=== PATIENT | female | born 1945 | race African-American/Black ===

== ENCOUNTER 2017-09-27 18:45 | Inpatient (IN) | payer OTHER ==
--- NOTE | 2017-09-27 19:35 | PDOC ---
History of Present Illness - General History Source: Patient <Alvin Allen - Last Filed: 09/27/17 21:15> - General Exam Limitations: No Limitations - History of Present Illness Initial Comments: 09/27/17 21:34 Patient is a 72 year old female with a significant past medical history of CHF, who presents to the ED with complaints of shortness of breath that began earlier this week. Patient reports seeing her blueprinter who advised patient come into the ED for further evaluation. She reports experiencing decreased appetite and intermittent episodes of being cold but denies chills. Patient reports symptoms began several days ago and has gradually increased in intensity. Patient reports currently being in heart failure. She reports experiencing intermittent episodes of being cold but denies chills. Patient reports having a blister on her right foot but denies knowing how she received the blister but states she believes it to be due to sitting in the sun. Denies chest pain, Sob. Denies fevers,chills. Denies nausea, vomiting. Denies contact with sick individuals, out of state travelling. Denies dysuria, hematuria. Denies constipation, diarrhea. Denies head trauma, loss of consciousness, Vision changes. Denies trauma to affected area. Denies any other symptoms. Allergies: Shellfish. Social history: No smoking. No alcohol. No illicit drugs. Surgical history: None PMD: Dr. Fischer <Candido Sutherland - Last Filed: 09/27/17 21:34> - General Chief Complaint: Shortness of Breath Stated Complaint: PCP SENT/ card for amdission Time Seen by Provider: 09/27/17 19:26 Past History - Past Medical History COPD: Yes Diabetes: Yes HTN: Yes Hypercholesterolemia: Yes - Surgical History Cardiac Surgery: Yes (stent) - Suicide/Smoking/Psychosocial Hx Smoking History: Never smoked Have you smoked in the past 12 months: No Information on smoking cessation initiated: No Hx Alcohol Use: No Drug/Substance Use Hx: No Substance Use Type: None <Alvin Allen - Last Filed: 09/27/17 21:15> <Candido Sutherland - Last Filed: 09/27/17 21:34> - Past Medical History Allergies/Adverse Reactions: Allergies Allergy/AdvReac Type Severity Reaction Status Date / Time shellfish derived Allergy Verified 09/27/17 18:53 Home Medications: Ambulatory Orders Amlodipine Besylate [Norvasc -] 5 mg PO DAILY 09/27/17 Aspirin [Aspirin EC] 81 mg PO DAILY 09/27/17 Review of Systems - Review of Systems Able to Perform ROS?: Yes Comments:: 09/27/17 21:34 CONSTITUTIONAL: Absent: fever, no chills, no fatigue EYES: Absent: visual changes ENT: Absent: ear pain, no sore throat CARDIOVASCULAR: Absent: chest pain, no palpitations RESPIRATORY: +Shortness of breath. Absent: cough, no SOB GI: +Decreased appetite Absent: abdominal pain, no nausea, no vomiting, no constipation, no diarrhea GENITOURINARY: Absent: dysuria, no frequency, no hematuria MUSCULOSKELETAL: Absent: back pain, no arthralgia, no myalgia SKIN: Absent: rash <Candido Sutherland - Last Filed: 09/27/17 21:34> *Physical Exam - Vital Signs Last Vital Signs Temp Pulse Resp BP Pulse Ox 98.5 F 100 H 20 134/75 100 09/27/17 18:54 09/27/17 18:54 09/27/17 18:54 09/27/17 18:54 09/27/17 18:54 <Alvin Allen - Last Filed: 09/27/17 21:15> - Vital Signs Last Vital Signs Temp Pulse Resp BP Pulse Ox 98.5 F 100 H 20 134/75 100 09/27/17 18:54 09/27/17 18:54 09/27/17 18:54 09/27/17 18:54 09/27/17 18:54 - Physical Exam Comments: 09/27/17 21:34 GENERAL: Well-appearing, well-nourished. No apparent distress. HEENT: Normocephalic, atraumatic. PERRL, EOM intact. CARDIOVASCULAR: Normal S1, S2. Regular rate and rhythm. PULMONARY: +Decreased breath sounds bilaterally. +scattered crackles. Clear to auscultation bilaterally. ABDOMEN: Soft, non-distended, non-tender. EXTREMITIES: +1 plus pitting edema bilaterally to lower extremities. +Dorsum of right foot blister 10 cm. No surrounding erythema. Normal ROM in all four extremities. No gross deformities. SKIN: Warm, dry. No rash NEUROLOGICAL: No focal neurological deficits. <Candido Sutherland Last Filed: 09/27/17 21:34> Heart Score/ECG Review - ECG Intrepretation Comment:: 09/27/17 19:36 Completed @18:59:18 Sinus rhythm with occasional premature ventricular complexes Possible left atrial enlargement Septal infarct, age undetermined Abnormal ECG Vent. rate 100 bpm [place] interval 158 ms QRS duration 86 ms <Candido Sutherland - Last Filed: 09/27/17 21:34> ED Treatment Course - LABORATORY CBC & Chemistry Diagram: 09/27/17 20:03 09/27/17 20:03 <Alvin Allen - Last Filed: 09/27/17 21:15> - LABORATORY CBC & Chemistry Diagram: 09/27/17 20:03 09/27/17 20:03 <Candido Sutherland - Last Filed: 09/27/17 21:34> *DC/Admit/Observation/Transfer - Discharge Dispostion Decision to Admit order: Yes <Alvin Allen - Last Filed: 09/27/17 21:15> - Attestations Scribe Attestion: 09/27/17 21:34 Documentation prepared by Candido Sutherland, acting as medical nurse for Alvin Allen DO. <Candido Sutherland - Last Filed: 09/27/17 21:34> Diagnosis at time of Disposition: CHF (congestive heart failure), Shortness of breath - Discharge Dispostion Condition at time of disposition: Stable - Referrals Referrals: Michael Fischer [Primary Care Provider] -
[2017-09-27 20:27] LABS: HEMATOCRIT 27.6 % (32.4-45.2); MCHC 28.8 g/dl (32.0-36.0); MEAN CELL VOLUME 62.5 fl (80-96); MEAN PLT VOLUME 9.4 fl (7.5-11.1); PLATELET COUNT 328 K/MM3 (134-434); RBC 4.41 M/mm3 (3.60-5.2); RDW 25.3 % (11.6-15.6); WHITE BLOOD COUNT 6.1 K/mm3 (4.0-10.0)
[2017-09-27 20:28] LABS: ADD RBC MORPHOLOGY YES
[2017-09-27 20:41] LABS: INR 1.24 (0.82-1.09)
[2017-09-27 20:55] LABS: ALBUMIN 2.9 g/dl (3.4-5.0); ANION GAP 9 (8-16); BILIRUBIN,TOTAL 0.6 mg/dL (0.2-1.0); BLOOD UREA NITROGEN 13 mg/dL (7-18); CALCIUM 8.1 mg/dL (8.5-10.1); CHLORIDE 108 mmol/L (98-107); CO2 27 mmol/L (21-32); CREATININE 0.7 mg/dL (0.55-1.02); GLUCOSE,RANDOM 98 mg/dL (74-106); MAGNESIUM 2.1 mg/dL (1.8-2.4); POTASSIUM 3.3 mmol/L (3.5-5.1); SGOT/AST 23 U/L (15-37); SGPT/ALT 26 U/L (12-78); SODIUM 144 mmol/L (136-145); TOT PROT 6.2 g/dl (6.4-8.2)
[2017-09-27 21:06] LABS: ANISOCYTOSIS 3+; OVALOCYTE 1+; PLATELET ESTIMATE ADEQUATE; TARGET CELLS 3+
[2017-09-27 21:07] LABS: ALK PHOS 96 U/L (45-117); N-TERMINAL BNP 15944.11 pg/ml (5-125)
[2017-09-27 21:12] LABS: URINE APPEARANCE CLOUDY; URINE BILIRUBIN NEGATIVE (<2.0 mg/dL); URINE COLOR AMBER; URINE GLUCOSE (UA) NEGATIVE (NEGATIVE); URINE KETONE NEGATIVE (NEGATIVE); URINE LEUK ESTERASE TRACE (NEGATIVE); URINE NITRITE NEGATIVE (NEGATIVE); URINE UROBILINOGEN 4.0 E.U/dl mg/dL (0.2-1.0)
[2017-09-27] MEDS ORDERED: FUROSEMIDE 40 MG/4 ML INJECTABLE VIAL IVPUSH ONE (21:15)
[2017-09-27 21:23] LABS: URINE PROTEIN 2+ (NEGATIVE)
[2017-09-27] MEDS ORDERED: FUROSEMIDE 40 MG/4 ML INJECTABLE VIAL ONE (21:41)
--- NOTE | 2017-09-27 22:40 | PN ---
Teaching Attending Note Name of Resident: Max Boss ATTENDING PHYSICIAN STATEMENT I saw and evaluated the patient. I reviewed the resident's note and discussed the case with the resident. I agree with the resident's findings and plan as documented. SUBJECTIVE: Patient is a 72 year old woman with a medical history of CHF, who presents to the ER with complaints of shortness of breath that began earlier this week. Patient reports seeing her ocean lifeguard who advised patient come into the ER for further evaluation. She reports experiencing decreased appetite and intermittent episodes of being cold but denies chills. Patient reports symptoms began several days ago and has gradually increased in intensity. Patient reports currently being in heart failure. She reports experiencing intermittent episodes of being cold but denies chills. Patient reports having a blister on her right foot but denies knowing how she received the blister but states she believes it to be due to sitting in the sun. OBJECTIVE: Alert and in mild respiratory distress Vital Signs Period Temp Pulse Resp BP Sys/Andres Pulse Ox Last 24 Hr 98.2 F-98.5 F 88-100 20-22 122-134/75-77 98-100 HEENT: No Jaundice, eye redness or discharge, PERRLA, EOMI. Normocephalic, atraumatic. External ears are normal and hearing is grossly intact. No nasal discharge. Neck: Supple, nontender. No palpable adenopathy or thyromegaly. Has JVD Chest: Good effort. Bibasilar crackles. Diminished breath sounds in left lung. Clear to auscultation and percussion. Heart: Regular. No S3, rub or murmur Abdomen: Not distended, soft, nontender and no HSM. No rebound or guarding. Normoactive bowel sounds. Ext: Peripheral pulses intact. Leg edema. Blister on dorsum of left foot. Skin: Warm and dry. No petechiae, rash or ecchymosis. Neuro: Alert. Oriented x3. CN 2-12 grossly intact. Sensation grossly intact in all four extremities and DTR are symmetric. Home Medications Medication Instructions Recorded Amlodipine Besylate [Norvasc -] 5 mg PO DAILY 09/27/17 Aspirin [Aspirin EC] 81 mg PO DAILY 09/27/17 Abnormal Lab Results 09/27/17 09/27/17 09/27/17 20:03 20:03 20:03 Hgb 8.0 L Hct 27.6 L D MCV 62.5 L MCH 18.0 L D MCHC 28.8 L RDW 25.3 H Nucleated RBC % 2 H PT with INR 14.00 H INR 1.24 H Potassium 3.3 L Chloride 108 H Calcium 8.1 L Troponin I 0.10 H B-Natriuretic Peptide 79140.11 H Total Protein 6.2 L Albumin 2.9 L Urine Protein Urine Urobilinogen 09/27/17 21:03 Hgb Hct MCV MCH MCHC RDW Nucleated RBC % PT with INR INR Potassium Chloride Calcium Troponin I B-Natriuretic Peptide Total Protein Albumin Urine Protein 2+ H Urine Urobilinogen 4.0 e.u/dl H ASSESSMENT AND PLAN: 1. CHF Exacerbation - No obvious precipitating factor and no recent ECHO available on her record. CXR shows cardiomegaly, blunted left CP angle and pulmonary congestion. Slightly elevated troponin, but EKG shows no significant new ST-T was changes - will monitor on telemetry and rule out ACS. Will treat with IV lasix while giving IV and PO KCL, get daily weight, restrict dietary salt intake. 2. Hypoalbuminemia - Possibly due to combined effects of proteinuria, malnutrition and inflammation associated with comorbid chronic conditions. Will quantify urinary protein excretion and ensure adequate dietary protein intake and also consult communications controller. 3. Anemia - Has low MCV anemia and an abnormal peripheral smear. Will do basic anemia work up including serial stool guaiacs, reticulocyte count and iron studies. Consult Hematology. GI consult for ?colonoscopy. 4. Hypokalemia - Likely due to excess renal losses induced by diuretics? coupled with poor intake. Check serum Mg level and urine K. Treat with PO KCL. 5. DVT prophylaxis - Heparin 5000u sq tid. 6. Advance directives - Full code
[2017-09-28] MEDS ORDERED: POTASSIUM CHLORIDE TABS 20 MEQ TABLET.ER (FP) PO ONE ×3 (04:06→15:00)
--- NOTE | 2017-09-28 05:17 | HP ---
CHIEF COMPLAINT: PCP: HISTORY OF PRESENT ILLNESS: 72 y/o F with a PMH of HTN, DM, CHF, who presents to the ED with complaints of SOB x 4d. In addition, she notes having an episode of CP for 15min about a week ago that spontaneously resolved, pt was unable to recall or characterize the pain. In addition she notes for the past 4 days associated w/ the SOB some nausea, chills, LIU. Patient reports seeing her card table attendant who did an echo and per pt reported "that heart wasnt beating correctly" and advised patient come into the ED for further evaluation. Of note, Patient reports having a blister on her right foot but denies knowing how she received the blister but states she believes it to be due to sitting in the sun. denies trauma to the foot Denies REDMAN, v/d, blood in stool, urinary sxs, sick contacts, changes in diet, or numbnes or tingling. PMD: Dr. Fischer ER course was notable for: (1) lasix 40mg iv (2) (3) Recent Travel: [place], came back this week PAST MEDICAL HISTORY: 3 mo ago eye doctor for cataracts b/l COPD PAST SURGICAL HISTORY: stents in the legs by card table attendant Social History: Smokinppd/30 years. quit 1 year ago Alcohol:none Drugs: marijuana in the past Family History: Allergies shellfish derived Allergy (Verified 09/27/17 18:53) HOME MEDICATIONS: Home Medications Medication Instructions Recorded Amlodipine Besylate [Norvasc -] 5 mg PO DAILY 09/27/17 Aspirin [Aspirin EC] 81 mg PO DAILY 09/27/17 REVIEW OF SYSTEMS Reviewed in HPI PHYSICAL EXAMINATION Vital Signs - 24 hr 09/27/17 09/27/17 09/28/17 18:54 20:01 01:09 Temperature 98.5 F 98.2 F 98.6 F Pulse Rate 100 H Pulse Rate [ 88 88 Right] Respiratory 20 22 19 Rate Blood Pressure 134/75 Blood Pressure 122/77 116/73 [Right Arm] O2 Sat by Pulse 100 98 95 Oximetry (%) 09/28/17 09/28/17 02:01 03:03 Temperature 98.2 F 98.9 F Pulse Rate 91 H Pulse Rate [ 83 Right] Respiratory 18 18 Rate Blood Pressure 134/74 Blood Pressure 110/73 [Right Arm] O2 Sat by Pulse 96 100 Oximetry (%) GENERAL: Awake, alert, and oriented x2. difficulty talking and in mild distress HEAD: Normal with no signs of trauma. EYES: Pupils equal, round and reactive to light, extraocular movements intact, sclera anicteric, conjunctiva clear. No lid lag. Fundoscope no retinopathy EARS, NOSE, THROAT: Ears normal, nares patent, oropharynx clear without exudates. Moist mucous membranes. NECK: +JVD Normal range of motion, supple without lymphadenopathy, or masses. LUNGS: Crackles b/l worse in LL and w/ decreased breath sounds in LL radiating to apex HEART: +Tachycardia Regular rhythm, normal S1 and S2 without murmur, rub or gallop. ABDOMEN: Soft, nontender, not distended, normoactive bowel sounds, no guarding, no rebound, no masses. No hepatomegaly or splenomegaly. MUSCULOSKELETAL: Normal range of motion at all joints. No bony deformities or tenderness. No CVA tenderness. UPPER EXTREMITIES: 2+ pulses, warm, well-perfused. No cyanosis. No clubbing. No peripheral edema. LOWER EXTREMITIES: 2+ pulses, warm, well-perfused. No calf tenderness. 2+ edema b/l. R foot blister, bulleous thin membrane on dorsum of foot NEUROLOGICAL: Cranial nerves II-XII intact. Normal speech. PSYCHIATRIC: Cooperative. Good eye contact. Appropriate mood and affect. SKIN: Warm, dry, normal turgor, no rashes or lesions noted, normal capillary refill. Laboratory Results - last 24 hr 09/27/17 09/27/17 09/27/17 20:03 20:03 20:03 WBC 6.1 RBC 4.41 Hgb 8.0 L Hct 27.6 L D MCV 62.5 L MCH 18.0 L D MCHC 28.8 L RDW 25.3 H Plt Count 328 D MPV 9.4 Absolute Neuts (auto) 4.1 Total Counted 100 Neutrophils % No Result Required. Neutrophils % (Manual) 70.0 Lymphocytes % No Result Required. Lymphocytes % (Manual) 24.0 Monocytes % (Manual) 6 Nucleated RBC % 2 H Hypochromia 3+ Platelet Estimate Adequate Platelet Comment No clumping noted Polychromasia 1+ Poikilocytosis 2+ Basophilic Stippling 1+ Anisocytosis 3+ Microcytosis 2+ Target Cells 3+ Ovalocytes 1+ PT with INR 14.00 H INR 1.24 H Sodium 144 Potassium 3.3 L Chloride 108 H Carbon Dioxide 27 Anion Gap 9 BUN 13 Creatinine 0.7 Creat Clearance w eGFR > 60 Random Glucose 98 Calcium 8.1 L Magnesium 2.1 Total Bilirubin 0.6 AST 23 ALT 26 Alkaline Phosphatase 96 Creatine Kinase 33 Troponin I 0.10 H B-Natriuretic Peptide 39052.11 H Total Protein 6.2 L Albumin 2.9 L Urine Color Urine Appearance Urine pH Ur Specific [place] Urine Protein Urine Glucose (UA) Urine Ketones Urine Blood Urine Nitrite Urine Bilirubin Urine Urobilinogen Ur Leukocyte Esterase Urine WBC (Auto) Urine RBC (Auto) 09/27/17 21:03 WBC RBC Hgb Hct MCV MCH MCHC RDW Plt Count MPV Absolute Neuts (auto) Total Counted Neutrophils % Neutrophils % (Manual) Lymphocytes % Lymphocytes % (Manual) Monocytes % (Manual) Nucleated RBC % Hypochromia Platelet Estimate Platelet Comment Polychromasia Poikilocytosis Basophilic Stippling Anisocytosis Microcytosis Target Cells Ovalocytes PT with INR INR Sodium Potassium Chloride Carbon Dioxide Anion Gap BUN Creatinine Creat Clearance w eGFR Random Glucose Calcium Magnesium Total Bilirubin AST ALT Alkaline Phosphatase Creatine Kinase Troponin I B-Natriuretic Peptide Total Protein Albumin Urine Color Alison Urine Appearance Cloudy Urine pH 5.0 Ur Specific [place] 1.023 Urine Protein 2+ H Urine Glucose (UA) Negative Urine Ketones Negative Urine Blood Negative Urine Nitrite Negative Urine Bilirubin Negative Urine Urobilinogen 4.0 e.u/dl H Ur Leukocyte Esterase Trace Urine WBC (Auto) 0 Urine RBC (Auto) 0 ASSESSMENT/PLAN: 72 y/o F with a PMH of HTN, DM, CHF, who presents to the ED with complaints of SOB x 4d found to be having acute decompensated HF. ADHF - No obvious precipitating factor, possible that recent episode of CP was demand ischemia or CT that could be a cause. No recent ECHO available on her record. CXR shows cardiomegaly, blunted left CP angle and pulmonary congestion. Slightly elevated troponin, but EKG shows no significant new ST-T was changes -monitor on telemetry and rule out ACS. -Will treat with IV lasix while giving IV and PO KCL, -get daily weight, restrict dietary salt intake. Microcytic Anemia - Has low MCV anemia and an abnormal peripheral smear. -basic anemia work up including serial stool guaiacs, reticulocyte count and iron studies. -Consult Hematology. -GI consult for ?colonoscopy. Hypokalemia - Likely due to excess renal losses induced by diuretics? coupled with poor intake. -Check serum Mg level and urine K. -Treat with PO KCL. FEN - no IVF - Monitor lytes as needed - Diabetic diet with low Na+ Prophylaxis - DVT: heparin SQ Disposition - admit tele Code status - Full code Visit type - Emergency Visit Emergency Visit: Yes ED Registration Date: 09/28/17 Care time: The patient presented to the Emergency Department on the above date and was hospitalized for further evaluation of their emergent condition. - New Patient This patient is new to me today: Yes Date on this admission: 09/28/17 - Critical Care Critical Care patient: No Hospitalist Screening - Colonoscopy Questionnaire Colonoscopy Questionnaire: Colonoscopy Questionnaire - Patient: 50 - 75 years old and never had a screening colonoscopy: Unknown History of colon or rectal polyps, or CA: Unknown History of IBD, Crohn's disease or UC: Unknown History of abdominal radiation therapy as a child: Unknown - Relative: 1 with colon or rectal CA, or polyps at age 60 or younger: Unknown Colon or rectal CA diagnosed at age 45 or younger: Unknown Multiple relatives with colon or rectal CA: Unknown - Outcome: Screening Result: Negative Screen
[2017-09-28] MEDS: HEPARIN NA (PORCINE) 5,000 UNITS/ML 1ML VIAL SQ SCH (05:58)
[2017-09-28 07:00] VITALS: BMI 18.5
--- NOTE | 2017-09-28 08:05 | CON.CARD ---
Consult Consult Specialty:: Cardiology - History of Present Illness Chief Complaint: chf exacorbation History of Present Illness: 72 y/o F with a PMH of HTN, DM, CHF, who presents to the ED with complaints of SOB x 4d. In addition, she notes having an episode of CP for 15min about a week ago that spontaneously resolved, pt was unable to recall or characterize the pain. In addition she notes for the past 4 days associated w/ the SOB some nausea, chills, LIU. Patient reports seeing her engineering mathematician who did an echo and per pt reported "that heart wasnt beating correctly" and advised patient come into the ED for further evaluation. Of note, Patient reports having a blister on her right foot but denies knowing how she received the blister but states she believes it to be due to sitting in the sun. denies trauma to the foot Denies REDMAN, v/d, blood in stool, urinary sxs, sick contacts, changes in diet, or numbnes or tingling. PMD: Dr. Fischer ER course was notable for: (1) lasix 40mg iv PMH HEAD OF RESEARCH & INSIGHTS R EIA, SENIOR SOFTWARE QUALITY ENGINEER, SFA (JEAN), PA Dr. Gomes HEAD [employer]EARCH [employer] INSIGHTS balloon of left deep femoral artery Dr. Gomes HEAD OF [employer]EARCH [employer] INSIGHTS balloon right SENIOR SOFTWARE QUALITY ENGINEER 06/07/2014 Dr. Gomes HEAD [employer] RESEARCH & INSIGHTS left SFA/PA/PFA 05/01/2015 Dr. Gomes [employer] OF RESEARCH & INSIGHTS/stent of left EIA Dr. Gomes Ongoing medical problems ASHD s/p [place] 2006 [facility] Claudication, intermittent dilated aortic root on ECHO , neg CT chest for ascending aortic aneurysm July 2013 HTN Hyperlipidemia PAD HEAD OF [employer]EARCH [employer] INSIGHTS balloon of left EIA, HEAD OF [employer]EARCH [employer] INSIGHTS drug coated balloons left SFA and PA, HEAD OF [employer]EARCH [employer] INSIGHTS balloon of left Profunda FA, kissing balloons inflations at left SENIOR SOFTWARE QUALITY ENGINEER/ostial SFA/PFA May 01, 2015 Dr. Gomes [employer]EARCH [employer] INSIGHTS drug coated balloons left SFA and PA May 01, 2015 Dr. Gomes - History Source History Provided By: Patient, Medical Record - Alcohol/Substance Use Hx Alcohol Use: No - Smoking History Smoking history: Former smoker Have you smoked in the past 12 months: No If you are a former smoker, when did you quit?: 1 year ago Home Medications - Allergies Allergies/Adverse Reactions: Allergies Allergy/AdvReac Type Severity Reaction Status Date / Time shellfish derived Allergy Verified 09/27/17 18:53 - Home Medications Home Medications: Ambulatory Orders Amlodipine Besylate [Norvasc -] 5 mg PO DAILY 09/27/17 Aspirin [Aspirin EC] 81 mg PO DAILY 09/27/17 Review of Systems - Review of Systems Constitutional: reports: No Symptoms Eyes: reports: No Symptoms HENT: reports: No Symptoms Neck: reports: No Symptoms Cardiovascular: reports: Edema, Shortness of Breath Respiratory: reports: No Symptoms Gastrointestinal: reports: No Symptoms Genitourinary: reports: No Symptoms Breasts: reports: No Symptoms Reported Musculoskeletal: reports: No Symptoms Integumentary: reports: No Symptoms Neurological: reports: No Symptoms Endocrine: reports: No Symptoms Hematology/Lymphatic: reports: No Symptoms Psychiatric: reports: No Symptoms Vital Signs: Vital Signs Temperature 98.9 F 09/28/17 03:03 Pulse Rate 91 H 09/28/17 03:03 Respiratory Rate 18 09/28/17 03:03 Blood Pressure 134/74 09/28/17 03:03 O2 Sat by Pulse Oximetry (%) 100 09/28/17 03:03 Constitutional: Yes: Well Nourished, No Distress, Calm Eyes: Yes: WNL, Conjunctiva Clear, EOM Intact HENT: Yes: WNL, Atraumatic, Normocephalic Neck: Yes: WNL, Supple, Trachea Midline Respiratory: Yes: WNL, Regular, CTA Bilaterally Gastrointestinal: Yes: WNL, Normal Bowel Sounds Renal/: Yes: WNL Cardiovascular: Yes: WNL, Regular Rate and Rhythm Musculoskeletal: Yes: WNL Extremities: Yes: WNL Integumentary: Yes: WNL Neurological: Yes: WNL, Alert, Oriented ...Motor Strength: WNL Psychiatric: Yes: WNL, Alert, Oriented - Other Data Labs, Other Data: CBC, BMP 09/27/17 20:03 09/27/17 20:03 INR, PTT INR 1.24 (0.82-1.09) H 09/27/17 20:03 Troponin, BNP 09/27/17 20:03 Troponin I 0.10 H B-Natriuretic Peptide 39618.11 H Troponin, BNP 09/27/17 20:03 Troponin I 0.10 H B-Natriuretic Peptide 63508.11 H Imaging - Results Chest X-ray: Image Reviewed (chf) EKG: Image Reviewed (sr olsd ant sep mi) Problem List - Problems (1) CHF (congestive heart failure) Code(s): I50.9 - HEART FAILURE, UNSPECIFIED (2) Shortness of breath Code(s): R06.02 - SHORTNESS OF BREATH Assessment/Plan Hypertension. It is well controlled; therefore, I would recommend continuation of current medical treatment. I would recommend obtaining fasting lipid profile to reassure that LDL is below 70 mg/dl. If LDL is above 70mg/dl I would recommend pharmacological treatment. The benefits of a "heart-healthy" diet were emphasized. This diet includes" 5+ portions of fruit/veg daily; whole grains and legumes; fish twice weekly; small daily portion of nuts; and decrease total daily calories/saturated and trans fats/processed meats and grains/fried foods/sugary foods and drinks. Patient was screened for unhealthy alcohol use using a systemic screening method. Patient was screened for tobacco use and unhealthy alcohol use, using a systemic screening method. Cessation counseling intervention was provided for tobacco and unhealthy alcohol users. Patient was screened for unhealthy alcohol use using a systemic screening method. PAD satable. Worsening lower extremity edema, SOB and blister in the setting of PAD and new severely reduced EF 20-25% (was 77%- )- I would recommend admission to [facility] via ER for diuresis and c cath later this week. cont iv lasix supplement k peter I, coreg telemetry
[2017-09-28 09:00] LABS: ANION GAP 10 (8-16); BLOOD UREA NITROGEN 11 mg/dL (7-18); CALCIUM 8.2 mg/dL (8.5-10.1); CHLORIDE 105 mmol/L (98-107); CO2 29 mmol/L (21-32); CREATININE 0.6 mg/dL (0.55-1.02); GLUCOSE,RANDOM 95 mg/dL (74-106); MAGNESIUM 1.9 mg/dL (1.8-2.4); PHOSPHOROUS 2.7 mg/dL (2.5-4.9); SODIUM 144 mmol/L (136-145)
[2017-09-28] MEDS ORDERED: PT OWN MED DRAWER 7, Y5N ONE ×2 (09:43→15:25)
[2017-09-28 09:55] LABS: BASO % 0.8 % (0-2.0); EOS % 0.6 % (0-4.5); HEMATOCRIT 26.4 % (32.4-45.2); HEMOGLOBIN 7.6 GM/dL (10.7-15.3); LYMPH % 24.4 % (8-40); MCHC 28.7 g/dl (32.0-36.0); MEAN CELL VOLUME 62.2 fl (80-96); MEAN PLT VOLUME 9.4 fl (7.5-11.1); MONO % 8.8 % (3.8-10.2); NEUT % 65.4 % (42.8-82.8); PLATELET COUNT 294 K/MM3 (134-434); RBC 4.24 M/mm3 (3.60-5.2); RDW 25.2 % (11.6-15.6); WHITE BLOOD COUNT 6.4 K/mm3 (4.0-10.0)
[2017-09-28] MEDS ORDERED: amLODIPine BESYLATE 5 MG TABLET (FP) PO SCH (10:00)
[2017-09-28] MEDS ORDERED: ASPIRIN COATED 81 MG TABLET.EC PO SCH (10:00)
[2017-09-28] MEDS ORDERED: FUROSEMIDE 40 MG/4 ML INJECTABLE VIAL IVPUSH SCH (10:00)
[2017-09-28 10:50] LABS: MCH 17.9 pg (25.7-33.7)
--- NOTE | 2017-09-28 11:42 | EKG ---
Test Reason : Blood Pressure : / mmHG Vent. Rate : 100 BPM Atrial Rate : 100 BPM P-R Int : 158 ms QRS Dur : 086 ms QT Int : 360 ms P-R-T Axes : 064 012 073 degrees QTc Int : 464 ms SINUS RHYTHM WITH OCCASIONAL PREMATURE VENTRICULAR COMPLEXES POSSIBLE LEFT ATRIAL ENLARGEMENT SEPTAL INFARCT (CITED ON OR BEFORE 10-DEC-2011) ABNORMAL ECG WHEN COMPARED WITH ECG OF 10-DEC-2011 10:04, PREMATURE VENTRICULAR COMPLEXES ARE NOW PRESENT VENT. RATE HAS INCREASED BY 44 BPM T WAVE INVERSION NOW EVIDENT IN LATERAL LEADS Confirmed by DEBI MICHEL MD ([id number]) on 09/28/2017 11:42:35 AM Referred By: Confirmed By:DEBI MICHEL MD
--- NOTE | 2017-09-28 12:08 | ECHO ---
Name: FIELDER, MARIAM Exam:Adult Echocardiogram Study Date: 09/28/2017 10:52 AM Reason For Study: CHF Height: 64 in Weight: 125 lb BSA: 1.6 m2 MMode/2D Measurements & Calculations IVSd: 1.0 cm Ao root diam: 2.8 cm LVIDd: 5.5 cm LA dimension: 3.1 cm LVIDs: 4.9 cm LVPWd: 0.96 cm EDV(Teich): 149.4 ml ESV(Teich): 114.9 ml Doppler Measurements & Calculations MV E max natalia: 58.2 cm/sec AI P1/2t: 245.6 msec MV A max natalia: 89.7 cm/sec MV E/A: 0.65 MV dec time: 0.21 sec AI max natalia: 462.4 cm/sec MR max natalia: 405.3 cm/sec AI max P.6 mmHg MR max P.2 mmHg AI dec slope: 551.5 cm/sec2 TR max natalia: 295.4 cm/sec PI Vmax: 237.5 cm/sec TR max P.9 mmHg Procedure A two-dimensional transthoracic echocardiogram with color flow and Doppler was performed. Left Ventricle The left ventricle is grossly normal size. Left ventricular systolic function is severely reduced. E/ A reversal consistent with but not diagnostic of poor LV compliance. There is severe global hypokinesis of the left ventricle. There is anterior wall akinesis. There is apical anterior wall akinesis. There is api antonio septal wall akinesis. There is apical akinesis. There is a large apical thrombus. Right Ventricle The right ventricle is normal in size and function. Atria Normal left and right atrial size and function. Mitral Valve There is mild mitral valve thickening. There is no mitral valve stenosis. There is mild to moderate m itral regurgitation. Tricuspid Valve There is mild tricuspid valve thickening. There is no tricuspid stenosis. There is severe tricuspid regurgitation. Right ventricular systolic pressure is elevated at 40-50mmHg. Aortic Valve The aortic valve is normal in structure and function. No hemodynamically significant valvular aortic stenosis. Mild to moderate aortic regurgitation. Pulmonic Valve The pulmonic valve is not well visualized. There is no pulmonic valvular stenosis. Trace to mild pulm onic valvular regurgitation. Great Vessels The aortic root is normal size. Pericardium/Pleura There is a mild pericardial effusion. Interpretation Summary The left ventricle is grossly normal size. Left ventricular systolic function is severely reduced. There is severe global hypokinesis of the left ventricle. There is severe tricuspid regurgitation. Right ventricular systolic pressure is elevated at 40-50mmHg. There is a mild pericardial effusion. Mild to moderate aortic regurgitation. There is a large apical thrombus. There is mild to moderate mitral regurgitation. E/A reversal consistent with but not diagnostic of poor LV compliance There is anterior wall akinesis. There is apical anterior wall akinesis. There is apical septal wall akinesis. There is apical akinesis. MD Bharat Mancera 09/28/2017 12:08 PM
[2017-09-28] MEDS ORDERED: HEPARIN NA (PORCINE) 5,000 UNITS/ML 1ML VIAL IVPUSH PRN ×2 (12:09)
[2017-09-28] MEDS ORDERED: HEPARIN SOD,PORK IN 0.45% NACL 25,000 UNIT/500 ML INFUS.BAG IVPB SCH (12:15)
[2017-09-28] MEDS: CARVEDILOL 3.125 MG TABLET (FP) PO SCH ×2 (13:31→22:34)
[2017-09-28] MEDS: ASPIRIN 325 MG ENTERIC COATED TABLET (FP) PO SCH (13:31)
--- NOTE | 2017-09-28 13:58 | PN ---
Teaching Attending Note Name of Resident: Katie Bey ATTENDING PHYSICIAN STATEMENT I saw and evaluated the patient. I reviewed the resident's note and discussed the case with the resident. I agree with the resident's findings and plan as documented with exceptions below. SUBJECTIVE: Patient seen and examined. sleeping but arousable, no complaints, limited co- operation. OBJECTIVE: Vital Signs Period Temp Pulse Resp BP Sys/Andres Pulse Ox Last 24 Hr 98.2 F-98.9 F 83-100 18-22 110-134/73-77 95-100 Intake & Output 09/25/17 09/26/17 09/27/17 09/28/17 23:59 23:59 23:59 23:59 Intake Total 50 Balance 50 Weight 125 lb 108 lb General: sleeping but arousable in bed Chest; Decreaesed breath sounds at bases, decreased air entry all over Abdomen:Soft, NT, nD Extremities: 2+ pedal edema, right foot blister Home Medications Medication Instructions Recorded Amlodipine Besylate [Norvasc -] 5 mg PO DAILY 09/27/17 Aspirin [Aspirin EC] 81 mg PO DAILY 09/27/17 Active Medications Aspirin (Ecotrin -) 325 mg PO DAILY [facility] [place] Last Admin: 09/28/17 13:31 Dose: 325 mg Carvedilol (Coreg -) 3.125 mg PO BID [facility] [place] Last Admin: 09/28/17 13:31 Dose: 3.125 mg Furosemide (Lasix Injection -) 80 mg IVPUSH DAILY [facility] [place] Last Admin: 09/28/17 13:46 Dose: 80 mg Heparin Sodium (Porcine) (Heparin -) 1,000 unit IVPUSH PRN PRN PRN Reason: Heparin Heparin Sodium (Porcine) (Heparin -) 5,000 unit IVPUSH PRN PRN PRN Reason: Heparin Last Admin: 09/28/17 12:10 Dose: 5,000 unit HEPARIN SOD,PORK IN 0.45% NACL (Heparin-1/2ns 25,000 Units/500) 25,000 unit in 500 mls @ 16 mls/hr IVPB TITR [facility] [place]; Protocol Last Admin: 09/28/17 12:30 Dose: 800 units/hr, 16 mls/hr Potassium Chloride (K-Dur -) 40 meq PO ONCE ONE Stop: 09/28/17 15:01 Quinapril HCl (Accupril -) 10 mg PO DAILY [facility] [place] Laboratory Results - last 24 hr 09/27/17 09/27/17 09/27/17 20:03 20:03 20:03 WBC 6.1 RBC 4.41 Hgb 8.0 L Hct 27.6 L D MCV 62.5 L MCH 18.0 L D MCHC 28.8 L RDW 25.3 H Plt Count 328 D MPV 9.4 Absolute Neuts (auto) 4.1 Total Counted 100 Neutrophils % No Result Required. Neutrophils % (Manual) 70.0 Lymphocytes % No Result Required. Lymphocytes % (Manual) 24.0 Monocytes % Monocytes % (Manual) 6 Eosinophils % Basophils % Nucleated RBC % 2 H Hypochromia 3+ Platelet Estimate Adequate Platelet Comment No clumping noted Polychromasia 1+ Poikilocytosis 2+ Basophilic Stippling 1+ Anisocytosis 3+ Microcytosis 2+ Target Cells 3+ Ovalocytes 1+ Retic Count PT with INR 14.00 H INR 1.24 H Sodium 144 Potassium 3.3 L Chloride 108 H Carbon Dioxide 27 Anion Gap 9 BUN 13 Creatinine 0.7 Creat Clearance w eGFR > 60 POC Glucometer Random Glucose 98 Calcium 8.1 L Phosphorus Magnesium 2.1 Ferritin Total Bilirubin 0.6 AST 23 ALT 26 Alkaline Phosphatase 96 Creatine Kinase 33 Troponin I 0.10 H B-Natriuretic Peptide 23946.11 H Total Protein 6.2 L Albumin 2.9 L Urine Color Urine Appearance Urine pH Ur Specific [place] Urine Protein Urine Glucose (UA) Urine Ketones Urine Blood Urine Nitrite Urine Bilirubin Urine Urobilinogen Ur Leukocyte Esterase Urine WBC (Auto) Urine RBC (Auto) Ur Random Sodium Ur Random Potassium Ur Random Chloride 09/27/17 09/28/17 09/28/17 21:03 06:22 07:30 WBC RBC Hgb Hct MCV MCH MCHC RDW Plt Count MPV Absolute Neuts (auto) Total Counted Neutrophils % Neutrophils % (Manual) Lymphocytes % Lymphocytes % (Manual) Monocytes % Monocytes % (Manual) Eosinophils % Basophils % Nucleated RBC % Hypochromia Platelet Estimate Platelet Comment Polychromasia Poikilocytosis Basophilic Stippling Anisocytosis Microcytosis Target Cells Ovalocytes Retic Count PT with INR INR Sodium 144 Potassium 3.0 L Chloride 105 Carbon Dioxide 29 Anion Gap 10 BUN 11 Creatinine 0.6 Creat Clearance w eGFR > 60 POC Glucometer 104 Random Glucose 95 Calcium 8.2 L Phosphorus 2.7 Magnesium 1.9 Ferritin 22.1 Total Bilirubin AST ALT Alkaline Phosphatase Creatine Kinase Troponin I 0.12 H B-Natriuretic Peptide Total Protein Albumin Urine Color Alison Urine Appearance Cloudy Urine pH 5.0 Ur Specific [place] 1.023 Urine Protein 2+ H Urine Glucose (UA) Negative Urine Ketones Negative Urine Blood Negative Urine Nitrite Negative Urine Bilirubin Negative Urine Urobilinogen 4.0 e.u/dl H Ur Leukocyte Esterase Trace Urine WBC (Auto) 0 Urine RBC (Auto) 0 Ur Random Sodium Ur Random Potassium Ur Random Chloride 09/28/17 09/28/17 09/28/17 07:30 07:35 07:35 WBC 6.4 RBC 4.24 Hgb 7.6 L Hct 26.4 L MCV 62.2 L MCH 17.9 L MCHC 28.7 L RDW 25.2 H Plt Count 294 MPV 9.4 Absolute Neuts (auto) 4.2 Total Counted Neutrophils % 65.4 Neutrophils % (Manual) Lymphocytes % 24.4 Lymphocytes % (Manual) Monocytes % 8.8 Monocytes % (Manual) Eosinophils % 0.6 Basophils % 0.8 Nucleated RBC % 2 H Hypochromia Platelet Estimate Platelet Comment Polychromasia Poikilocytosis Basophilic Stippling Anisocytosis Microcytosis Target Cells Ovalocytes Retic Count 2.61 H PT with INR INR Sodium Cancelled Potassium Cancelled Chloride Cancelled Carbon Dioxide Cancelled Anion Gap Cancelled BUN Cancelled Creatinine Cancelled Creat Clearance w eGFR Cancelled POC Glucometer Random Glucose Cancelled Calcium Cancelled Phosphorus Cancelled Magnesium Cancelled Ferritin Total Bilirubin AST ALT Alkaline Phosphatase Creatine Kinase Troponin I B-Natriuretic Peptide Total Protein Albumin Urine Color Urine Appearance Urine pH Ur Specific [place] Urine Protein Urine Glucose (UA) Urine Ketones Urine Blood Urine Nitrite Urine Bilirubin Urine Urobilinogen Ur Leukocyte Esterase Urine WBC (Auto) Urine RBC (Auto) Ur Random Sodium Ur Random Potassium Ur Random Chloride 09/28/17 09/28/17 09/28/17 07:35 08:40 13:13 WBC RBC Hgb Hct MCV MCH MCHC RDW Plt Count MPV Absolute Neuts (auto) Total Counted Neutrophils % Neutrophils % (Manual) Lymphocytes % Lymphocytes % (Manual) Monocytes % Monocytes % (Manual) Eosinophils % Basophils % Nucleated RBC % Hypochromia Platelet Estimate Platelet Comment Polychromasia Poikilocytosis Basophilic Stippling Anisocytosis Microcytosis Target Cells Ovalocytes Retic Count PT with INR INR Sodium Potassium Chloride Carbon Dioxide Anion Gap BUN Creatinine Creat Clearance w eGFR POC Glucometer Random Glucose Calcium Phosphorus Magnesium Ferritin Total Bilirubin AST ALT Alkaline Phosphatase Creatine Kinase Troponin I Cancelled 0.13 H B-Natriuretic Peptide Total Protein Albumin Urine Color Urine Appearance Urine pH Ur Specific [place] Urine Protein Urine Glucose (UA) Urine Ketones Urine Blood Urine Nitrite Urine Bilirubin Urine Urobilinogen Ur Leukocyte Esterase Urine WBC (Auto) Urine RBC (Auto) Ur Random Sodium 134 Ur Random Potassium 30.4 Ur Random Chloride 141 2D echo results noted WMA with large apical thrombus ASSESSMENT AND PLAN: 72 yof with Pmhx of HTN, prior normal EF with recent EF 20-25%, admitted with systolic HF exacerbation and large apical thrombus. -Acute systolic heart failure exacerbation -Large apical thrombus -Anemia, ?multifactorial, r/o occult bleed -HTN -?DM Plan: Discussed with Dr. Mancera, lasix 80 mg IV today, transition to 40 mg IV in AM with close monitoring of renal function. Transfuse 1 unit PRBC with lasix 20 mg IV x 1. Started on heparin drip given large apical thrombus and risk of holding AC higher given hemodynamic stability and no gross evidence of bleed. Follow up iron panel, b12/folate levels. Check FOBT. monitor vitals and trend H/ h. GI /hematology consulted on admission, but will need to defer aggressive management of anemia till acute cardiac issues have resolved. Continue quinapril. Check A1c, BGM for now, Unclear if h/o DM. DVTPPX, on heparin drip. Dispo plan for transfer for cardiac cath on Tuesday after diuresis over next 24- 48 hours.
[2017-09-28] MEDS ORDERED: FUROSEMIDE 40 MG/4 ML INJECTABLE VIAL IVPUSH ONE (14:02)
--- NOTE | 2017-09-28 16:11 | EKG ---
Test Reason : Blood Pressure : / mmHG Vent. 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
--- NOTE | 2017-09-28 18:05 | PN ---
Physical Exam: SUBJECTIVE: Patient seen and examined at bedside. Says shes feels much better and her SOB has improved alot. Denies fevers, chills, chest pain, nausea, vomiting, diarrhea. OBJECTIVE: Vital Signs Period Temp Pulse Resp BP Sys/Andres Pulse Ox Last 24 Hr 97.7 F-98.9 F 83-100 18-22 94-134/50-78 95-100 Vital Signs Temp 97.5 F L 09/28/17 17:00 Pulse 82 09/28/17 17:00 Resp 20 09/28/17 17:00 BP 96/61 09/28/17 17:00 Pulse Ox 100 09/28/17 09:00 Intake & Output 09/27/17 09/28/17 09/28/17 23:59 11:59 23:59 Intake Total 50 550 Output Total 650 Balance 50 -100 Weight 56.699 kg 48.988 kg Intake: Oral 50 550 Output: Urine 650 Void 650 Other: Voiding Method Toilet Indwelling Catheter # Unmeasured Voids Void 2 0 Bowel Movement No Height 1.63 m 1.63 m Body Mass Index (BMI) 21.4 18.5 Weight Measurement Method Standing Scale Weight Measurement Method Est/Stated by Patient GENERAL: The patient is awake, alert, and fully oriented, in no acute distress. NECK: JVD LUNGS: Breath sounds decreased at bases HEART: Regular rate and rhythm, S1, S2 without murmur, rub or gallop. ABDOMEN: Soft, nontender, nondistended, normoactive bowel sounds EXTREMITIES: 2+ edema, Right foot bullous Laboratory Results - last 24 hr 09/27/17 09/27/17 09/27/17 20:03 20:03 20:03 WBC 6.1 RBC 4.41 Hgb 8.0 L Hct 27.6 L D MCV 62.5 L MCH 18.0 L D MCHC 28.8 L RDW 25.3 H Plt Count 328 D MPV 9.4 Absolute Neuts (auto) 4.1 Total Counted 100 Neutrophils % No Result Required. Neutrophils % (Manual) 70.0 Lymphocytes % No Result Required. Lymphocytes % (Manual) 24.0 Monocytes % Monocytes % (Manual) 6 Eosinophils % Basophils % Nucleated RBC % 2 H Hypochromia 3+ Platelet Estimate Adequate Platelet Comment No clumping noted Polychromasia 1+ Poikilocytosis 2+ Basophilic Stippling 1+ Anisocytosis 3+ Microcytosis 2+ Target Cells 3+ Ovalocytes 1+ Retic Count PT with INR 14.00 H INR 1.24 H Sodium 144 Potassium 3.3 L Chloride 108 H Carbon Dioxide 27 Anion Gap 9 BUN 13 Creatinine 0.7 Creat Clearance w eGFR > 60 POC Glucometer Random Glucose 98 Calcium 8.1 L Phosphorus Magnesium 2.1 Ferritin Total Bilirubin 0.6 AST 23 ALT 26 Alkaline Phosphatase 96 Creatine Kinase 33 Troponin I 0.10 H B-Natriuretic Peptide 18809.11 H Total Protein 6.2 L Albumin 2.9 L Vitamin B12 Serum Folate Urine Color Urine Appearance Urine pH Ur Specific [place] Urine Protein Urine Glucose (UA) Urine Ketones Urine Blood Urine Nitrite Urine Bilirubin Urine Urobilinogen Ur Leukocyte Esterase Urine WBC (Auto) Urine RBC (Auto) Ur Random Sodium Ur Random Potassium Ur Random Chloride Blood Type Antibody Screen Crossmatch 09/27/17 09/28/17 09/28/17 21:03 06:22 07:30 WBC RBC Hgb Hct MCV MCH MCHC RDW Plt Count MPV Absolute Neuts (auto) Total Counted Neutrophils % Neutrophils % (Manual) Lymphocytes % Lymphocytes % (Manual) Monocytes % Monocytes % (Manual) Eosinophils % Basophils % Nucleated RBC % Hypochromia Platelet Estimate Platelet Comment Polychromasia Poikilocytosis Basophilic Stippling Anisocytosis Microcytosis Target Cells Ovalocytes Retic Count PT with INR INR Sodium 144 Potassium 3.0 L Chloride 105 Carbon Dioxide 29 Anion Gap 10 BUN 11 Creatinine 0.6 Creat Clearance w eGFR > 60 POC Glucometer 104 Random Glucose 95 Calcium 8.2 L Phosphorus 2.7 Magnesium 1.9 Ferritin 22.1 Total Bilirubin AST ALT Alkaline Phosphatase Creatine Kinase Troponin I 0.12 H B-Natriuretic Peptide Total Protein Albumin Vitamin B12 Serum Folate Urine Color [place] Urine Appearance Cloudy Urine pH 5.0 Ur Specific [place] 1.023 Urine Protein 2+ H Urine Glucose (UA) Negative Urine Ketones Negative Urine Blood Negative Urine Nitrite Negative Urine Bilirubin Negative Urine Urobilinogen 4.0 e.u/dl H Ur Leukocyte Esterase Trace Urine WBC (Auto) 0 Urine RBC (Auto) 0 Ur Random Sodium Ur Random Potassium Ur Random Chloride Blood Type Antibody Screen Crossmatch 09/28/17 09/28/17 09/28/17 07:30 07:35 07:35 WBC 6.4 RBC 4.24 Hgb 7.6 L Hct 26.4 L MCV 62.2 L MCH 17.9 L MCHC 28.7 L RDW 25.2 H Plt Count 294 MPV 9.4 Absolute Neuts (auto) 4.2 Total Counted Neutrophils % 65.4 Neutrophils % (Manual) Lymphocytes % 24.4 Lymphocytes % (Manual) Monocytes % 8.8 Monocytes % (Manual) Eosinophils % 0.6 Basophils % 0.8 Nucleated RBC % 2 H Hypochromia Platelet Estimate Platelet Comment Polychromasia Poikilocytosis Basophilic Stippling Anisocytosis Microcytosis Target Cells Ovalocytes Retic Count 2.61 H PT with INR INR Sodium Cancelled Potassium Cancelled Chloride Cancelled Carbon Dioxide Cancelled Anion Gap Cancelled BUN Cancelled Creatinine Cancelled Creat Clearance w eGFR Cancelled POC Glucometer Random Glucose Cancelled Calcium Cancelled Phosphorus Cancelled Magnesium Cancelled Ferritin Total Bilirubin AST ALT Alkaline Phosphatase Creatine Kinase Troponin I B-Natriuretic Peptide Total Protein Albumin Vitamin B12 Serum Folate Urine Color Urine Appearance Urine pH Ur Specific [place] Urine Protein Urine Glucose (UA) Urine Ketones Urine Blood Urine Nitrite Urine Bilirubin Urine Urobilinogen Ur Leukocyte Esterase Urine WBC (Auto) Urine RBC (Auto) Ur Random Sodium Ur Random Potassium Ur Random Chloride Blood Type Antibody Screen Crossmatch 09/28/17 09/28/17 09/28/17 07:35 08:40 13:13 WBC RBC Hgb Hct MCV MCH MCHC RDW Plt Count MPV Absolute Neuts (auto) Total Counted Neutrophils % Neutrophils % (Manual) Lymphocytes % Lymphocytes % (Manual) Monocytes % Monocytes % (Manual) Eosinophils % Basophils % Nucleated RBC % Hypochromia Platelet Estimate Platelet Comment Polychromasia Poikilocytosis Basophilic Stippling Anisocytosis Microcytosis Target Cells Ovalocytes Retic Count PT with INR INR Sodium Potassium Chloride Carbon Dioxide Anion Gap BUN Creatinine Creat Clearance w eGFR POC Glucometer Random Glucose Calcium Phosphorus Magnesium Ferritin Total Bilirubin AST ALT Alkaline Phosphatase Creatine Kinase Troponin I Cancelled 0.13 H B-Natriuretic Peptide Total Protein Albumin Vitamin B12 602 Serum Folate 12 Urine Color Urine Appearance Urine pH Ur Specific [place] Urine Protein Urine Glucose (UA) Urine Ketones Urine Blood Urine Nitrite Urine Bilirubin Urine Urobilinogen Ur Leukocyte Esterase Urine WBC (Auto) Urine RBC (Auto) Ur Random Sodium 134 Ur Random Potassium 30.4 Ur Random Chloride 141 Blood Type Antibody Screen Crossmatch 09/28/17 09/28/17 14:35 15:30 WBC RBC Hgb Hct MCV MCH MCHC RDW Plt Count MPV Absolute Neuts (auto) Total Counted Neutrophils % Neutrophils % (Manual) Lymphocytes % Lymphocytes % (Manual) Monocytes % Monocytes % (Manual) Eosinophils % Basophils % Nucleated RBC % Hypochromia Platelet Estimate Platelet Comment Polychromasia Poikilocytosis Basophilic Stippling Anisocytosis Microcytosis Target Cells Ovalocytes Retic Count PT with INR INR Sodium Potassium Chloride Carbon Dioxide Anion Gap BUN Creatinine Creat Clearance w eGFR POC Glucometer Random Glucose Calcium Phosphorus Magnesium Ferritin Total Bilirubin AST ALT Alkaline Phosphatase Creatine Kinase Troponin I B-Natriuretic Peptide Total Protein Albumin Vitamin B12 Serum Folate Urine Color Urine Appearance Urine pH Ur Specific [place] Urine Protein Urine Glucose (UA) Urine Ketones Urine Blood Urine Nitrite Urine Bilirubin Urine Urobilinogen Ur Leukocyte Esterase Urine WBC (Auto) Urine RBC (Auto) Ur Random Sodium Ur Random Potassium Ur Random Chloride Blood Type O POSITIVE O POSITIVE Antibody Screen Negative Crossmatch See Detail Active Medications Aspirin (Ecotrin -) 325 mg PO DAILY [facility] [place] Last Admin: 09/28/17 13:31 Dose: 325 mg Carvedilol (Coreg -) 3.125 mg PO BID [facility] [place] Last Admin: 09/28/17 13:31 Dose: 3.125 mg Furosemide (Lasix Injection -) 80 mg IVPUSH DAILY [facility] [place] Last Admin: 09/28/17 13:46 Dose: 80 mg Furosemide (Lasix Injection -) 20 mg IVPUSH ONCE ONE Stop: 09/28/17 14:03 Heparin Sodium (Porcine) (Heparin -) 1,000 unit IVPUSH PRN PRN PRN Reason: Heparin Heparin Sodium (Porcine) (Heparin -) 5,000 unit IVPUSH PRN PRN PRN Reason: Heparin Last Admin: 09/28/17 12:10 Dose: 5,000 unit HEPARIN SOD,PORK IN 0.45% NACL (Heparin-1/2ns 25,000 Units/500) 25,000 unit in 500 mls @ 16 mls/hr IVPB TITR [facility] [place]; Protocol Last Admin: 09/28/17 12:30 Dose: 800 units/hr, 16 mls/hr Quinapril HCl (Accupril -) 10 mg PO DAILY [facility] [place] Last Admin: 09/28/17 18:24 Dose: 10 mg ASSESSMENT/PLAN: 72 y/o F with a PMHx of HTN, DM, CHF presented to the ED with SOB x 4 days and found to be in acute systolic HF. 1. Acute Systolic HF Exacerbation - CXR: Large left pleural effusion with compressive atelectasis - Troponin: 0.10, 0.12, 0.13 - Initially EKG shows Sinus rhythm with occasional PVC, Repeat EKG shows NSR - Spoke to Dr. Mancera, Will give IV Lasix 80mg today and transition to 40 mg IV tmrw - Will Transfuse 1 unit pRBC with IV Lasix 20 mg - Daily weight, Strict I&Os - Echo shows large apical thrombus, Herparin started 2. Microcytic Anemia - Low MCV + abnormal peripheral smear - Stool guaiacs, Iron studies - Iron panel - B12/folate levels - Trend Hgb 3. HTN - Continue Coreg, Quinapril 4. DM - BGM - A1c 5. FEN - No IVF - Replete lytes as needed - Diabetic diet with low Na+ 6. Prophylaxis - DVT: heparin SQ Dispos: Transfer for Cath on tuesday Visit type - Emergency Visit Emergency Visit: Yes ED Registration Date: 09/28/17 Care time: The patient presented to the Emergency Department on the above date and was hospitalized for further evaluation of their emergent condition. - New Patient This patient is new to me today: Yes Date on this admission: 09/28/17 - Critical Care Critical Care patient: No
[2017-09-28] MEDS: QUINAPRIL HCL 10 MG TABLET (FP) PO SCH (18:24)
[2017-09-29 06:21] LABS: HEMATOCRIT 29.8 % (32.4-45.2); HEMOGLOBIN 8.8 GM/dL (10.7-15.3); MCHC 29.5 g/dl (32.0-36.0); MEAN CELL VOLUME 64.5 fl (80-96); MEAN PLT VOLUME 9.4 fl (7.5-11.1); PLATELET COUNT 299 K/MM3 (134-434); RBC 4.61 M/mm3 (3.60-5.2); RDW 26.2 % (11.6-15.6); WHITE BLOOD COUNT 6.8 K/mm3 (4.0-10.0)
[2017-09-29 06:24] LABS: SERUM IRON SATURATION 4 % (15-55); TOTAL IRON BINDING CAPACITY 326 ug/dL (250-450); UIBC 312 ug/dL (118-369)
[2017-09-29 06:55] LABS: ALBUMIN 2.6 g/dl (3.4-5.0); ANION GAP 9 (8-16); BLOOD UREA NITROGEN 19 mg/dL (7-18); CHLORIDE 107 mmol/L (98-107); CO2 28 mmol/L (21-32); CREATININE 0.9 mg/dL (0.55-1.02); GLUCOSE,RANDOM 110 mg/dL (74-106); PHOSPHOROUS 2.9 mg/dL (2.5-4.9); POTASSIUM 4.6 mmol/L (3.5-5.1); SGOT/AST 25 U/L (15-37); SGPT/ALT 28 U/L (12-78); SODIUM 144 mmol/L (136-145)
[2017-09-29 07:11] LABS: ALK PHOS 81 U/L (45-117); BILIRUBIN,TOTAL 1.1 mg/dL (0.2-1.0); CALCIUM 8.2 mg/dL (8.5-10.1); TOT PROT 5.8 g/dl (6.4-8.2)
[2017-09-29] MEDS: HEPARIN NA (PORCINE) 5,000 UNITS/ML 1ML VIAL SQ SCH (08:21)
[2017-09-29] MEDS ORDERED: FUROSEMIDE 40 MG/4 ML INJECTABLE VIAL IVPUSH SCH (08:38)
--- NOTE | 2017-09-29 08:38 | PN ---
Teaching Attending Note Name of Resident: Katie Bey ATTENDING PHYSICIAN STATEMENT I saw and evaluated the patient. I reviewed the resident's note and discussed the case with the resident. I agree with the resident's findings and plan as documented with exceptions below. SUBJECTIVE: Patient seen and examined. pleasant, breathing improved, no new complaints. OBJECTIVE: Vital Signs Period Temp Pulse Resp BP Sys/Andres Pulse Ox Last 24 Hr 97.5 F-98.5 F 80-87 18-20 94-132/50-78 100-100 Intake & Output 09/26/17 09/27/17 09/28/17 09/29/17 23:59 23:59 23:59 23:59 Intake Total 600 150 Output Total 1100 100 Balance -500 50 Weight 125 lb 108 lb 108 lb General: sitting in bed in no acute distress Chest: decreased breath sounds at bases Abdomen: soft, nT, ND Extremities: right foot blister, no discharge, swelling or erythema noted Home Medications Medication Instructions Recorded Amlodipine Besylate [Norvasc -] 5 mg PO DAILY 09/27/17 Aspirin [Aspirin EC] 81 mg PO DAILY 09/27/17 Active Medications Aspirin (Ecotrin -) 325 mg PO DAILY [facility] Last Admin: 09/28/17 13:31 Dose: 325 mg Carvedilol (Coreg -) 3.125 mg PO BID [facility] Last Admin: 09/28/17 22:34 Dose: 3.125 mg Furosemide (Lasix Injection -) 80 mg IVPUSH DAILY [facility] Last Admin: 09/28/17 13:46 Dose: 80 mg Furosemide (Lasix Injection -) 20 mg IVPUSH ONCE ONE Stop: 09/28/17 14:03 Heparin Sodium (Porcine) (Heparin -) 1,000 unit IVPUSH PRN PRN PRN Reason: Heparin Heparin Sodium (Porcine) (Heparin -) 5,000 unit IVPUSH PRN PRN PRN Reason: Heparin Last Admin: 09/28/17 12:10 Dose: 5,000 unit HEPARIN SOD,PORK IN 0.45% NACL (Heparin-1/2ns 25,000 Units/500) 25,000 unit in 500 mls @ 16 mls/hr IVPB TITR [facility]; Protocol Last Titration: 09/28/17 22:00 Dose: 800 units/hr, 16 mls/hr Quinapril HCl (Accupril -) 10 mg PO DAILY [facility] Last Admin: 09/28/17 18:24 Dose: 10 mg Laboratory Results - last 24 hr 09/28/17 09/28/17 09/28/17 07:30 07:35 07:35 WBC 6.4 RBC 4.24 Hgb 7.6 L Hct 26.4 L MCV 62.2 L MCH 17.9 L MCHC 28.7 L RDW 25.2 H Plt Count 294 MPV 9.4 Absolute Neuts (auto) 4.2 Neutrophils % 65.4 Lymphocytes % 24.4 Monocytes % 8.8 Eosinophils % 0.6 Basophils % 0.8 Nucleated RBC % 2 H PTT (Actin FS) Sodium 144 Potassium 3.0 L Chloride 105 Carbon Dioxide 29 Anion Gap 10 BUN 11 Creatinine 0.6 Creat Clearance w eGFR > 60 Random Glucose 95 Calcium 8.2 L Phosphorus 2.7 Magnesium 1.9 Iron 14 L TIBC 326 Iron Saturation 4 L Ferritin 22.1 Total Bilirubin AST ALT Alkaline Phosphatase Troponin I 0.12 H Total Protein Albumin Vitamin B12 Serum Folate Ur Random Sodium Ur Random Potassium Ur Random Chloride Blood Type Antibody Screen Crossmatch 09/28/17 09/28/17 09/28/17 07:35 07:35 08:40 WBC RBC Hgb Hct MCV MCH MCHC RDW Plt Count MPV Absolute Neuts (auto) Neutrophils % Lymphocytes % Monocytes % Eosinophils % Basophils % Nucleated RBC % PTT (Actin FS) Sodium Cancelled Potassium Cancelled Chloride Cancelled Carbon Dioxide Cancelled Anion Gap Cancelled BUN Cancelled Creatinine Cancelled Creat Clearance w eGFR Cancelled Random Glucose Cancelled Calcium Cancelled Phosphorus Cancelled Magnesium Cancelled Iron TIBC Iron Saturation Ferritin Total Bilirubin AST ALT Alkaline Phosphatase Troponin I Cancelled Total Protein Albumin Vitamin B12 Serum Folate Ur Random Sodium 134 Ur Random Potassium 30.4 Ur Random Chloride 141 Blood Type Antibody Screen Crossmatch 09/28/17 09/28/17 09/28/17 13:13 14:35 15:30 WBC RBC Hgb Hct MCV MCH MCHC RDW Plt Count MPV Absolute Neuts (auto) Neutrophils % Lymphocytes % Monocytes % Eosinophils % Basophils % Nucleated RBC % PTT (Actin FS) Sodium Potassium Chloride Carbon Dioxide Anion Gap BUN Creatinine Creat Clearance w eGFR Random Glucose Calcium Phosphorus Magnesium Iron TIBC Iron Saturation Ferritin Total Bilirubin AST ALT Alkaline Phosphatase Troponin I 0.13 H Total Protein Albumin Vitamin B12 602 Serum Folate 12 Ur Random Sodium Ur Random Potassium Ur Random Chloride Blood Type O POSITIVE O POSITIVE Antibody Screen Negative Crossmatch See Detail 09/28/17 09/29/17 09/29/17 18:30 05:30 05:30 WBC 6.8 RBC 4.61 Hgb 8.8 L Hct 29.8 L MCV 64.5 L MCH 19.0 L MCHC 29.5 L RDW 26.2 H Plt Count 299 MPV 9.4 Absolute Neuts (auto) 4.5 Neutrophils % No Result Required. Lymphocytes % No Result Required. Monocytes % Eosinophils % Basophils % Nucleated RBC % 3 H PTT (Actin FS) 73.5 H Sodium 144 Potassium 4.6 Chloride 107 Carbon Dioxide 28 Anion Gap 9 BUN 19 H Creatinine 0.9 Creat Clearance w eGFR > 60 Random Glucose 110 H Calcium 8.2 L Phosphorus 2.9 Magnesium 2.0 Iron TIBC Iron Saturation Ferritin Total Bilirubin 1.1 H AST 25 ALT 28 Alkaline Phosphatase 81 D Troponin I Total Protein 5.8 L Albumin 2.6 L Vitamin B12 Serum Folate Ur Random Sodium Ur Random Potassium Ur Random Chloride Blood Type Antibody Screen Crossmatch 09/29/17 06:30 WBC RBC Hgb Hct MCV MCH MCHC RDW Plt Count MPV Absolute Neuts (auto) Neutrophils % Lymphocytes % Monocytes % Eosinophils % Basophils % Nucleated RBC % PTT (Actin FS) 68.0 H Sodium Potassium Chloride Carbon Dioxide Anion Gap BUN Creatinine Creat Clearance w eGFR Random Glucose Calcium Phosphorus Magnesium Iron TIBC Iron Saturation Ferritin Total Bilirubin AST ALT Alkaline Phosphatase Troponin I Total Protein Albumin Vitamin B12 Serum Folate Ur Random Sodium Ur Random Potassium Ur Random Chloride Blood Type Antibody Screen Crossmatch ASSESSMENT AND PLAN: 72 yof with Pmhx of HTN, prior normal EF with recent EF 20-25%, admitted with systolic HF exacerbation and large apical thrombus. -Acute systolic heart failure exacerbation -Large apical thrombus -Anemia, ?multifactorial, r/o occult bleed -Right foot blister -HTN -?DM Plan: Change lasix to 40 mg IV daily as discussed with cardiology. Continue heparin drip. s/p 1 unit PRBC on 09/28 with appropriate response. FOBt, but no gross evidence of bleed. Follow up iron panel/folate/B12 GI /hematology consulted on admission, but will need to defer aggressive management of anemia till acute cardiac issues have resolved. Continue quinapril. BGM for now, Unclear if h/o DM. A1c 6.1 Podiatry input noted, s/p I&D right foot blister, wound care. DVTPPX, on heparin drip. Dispo discussed with Dr. Chaudhry, transfer to [facility] when bed available for cardiac catheterization.
--- NOTE | 2017-09-29 09:50 | PN ---
Progress Note, Physician History of Present Illness: Patient is a 72 year old female with a significant past medical history of CHF, who presents to the ED with complaints of shortness of breath that began earlier this week. Patient reports seeing her education teacher who advised patient come into the ED for further evaluation. She reports experiencing decreased appetite and intermittent episodes of being cold but denies chills. Patient reports symptoms began several days ago and has gradually increased in intensity. Patient reports currently being in heart failure. She reports experiencing intermittent episodes of being cold but denies chills. Patient reports having a blister on her right foot but denies knowing how she received the blister but states she believes it to be due to sitting in the sun. Denies chest pain, Sob. Denies fevers,chills. Denies nausea, vomiting. Denies contact with sick individuals, out of state travelling. Denies dysuria, hematuria. Denies constipation, diarrhea. Denies head trauma, loss of consciousness, Vision changes. Denies trauma to affected area. Denies any other symptoms. Allergies: Shellfish. Social history: No smoking. No alcohol. No illicit drugs. Surgical history: None PMD: Dr. Fischer - Current Medication List Current Medications: Active Medications Aspirin (Ecotrin -) 325 mg PO DAILY [facility] Last Admin: 09/28/17 13:31 Dose: 325 mg Carvedilol (Coreg -) 3.125 mg PO BID [facility] Last Admin: 09/28/17 22:34 Dose: 3.125 mg Furosemide (Lasix Injection -) 20 mg IVPUSH ONCE ONE Stop: 09/28/17 14:03 Furosemide (Lasix Injection -) 40 mg IVPUSH DAILY [facility] Heparin Sodium (Porcine) (Heparin -) 1,000 unit IVPUSH PRN PRN PRN Reason: Heparin Heparin Sodium (Porcine) (Heparin -) 5,000 unit IVPUSH PRN PRN PRN Reason: Heparin Last Admin: 09/28/17 12:10 Dose: 5,000 unit HEPARIN SOD,PORK IN 0.45% NACL (Heparin-1/2ns 25,000 Units/500) 25,000 unit in 500 mls @ 16 mls/hr IVPB TITR [facility]; Protocol Last Titration: 09/28/17 22:00 Dose: 800 units/hr, 16 mls/hr Quinapril HCl (Accupril -) 10 mg PO DAILY [facility] Last Admin: 09/28/17 18:24 Dose: 10 mg - Objective Vital Signs: Vital Signs Temperature 97.8 F 09/29/17 05:00 Pulse Rate 80 09/29/17 05:00 Respiratory Rate 20 09/29/17 05:00 Blood Pressure 132/76 09/29/17 05:00 O2 Sat by Pulse Oximetry (%) 100 09/28/17 21:00 Constitutional: Yes: Well Nourished Eyes: Yes: WNL HENT: Yes: WNL Neck: Yes: WNL Cardiovascular: Yes: WNL Labs: CBC, BMP 09/29/17 05:30 09/29/17 05:30 INR, PTT INR 1.24 (0.82-1.09) H 09/27/17 20:03 Problem List - Problems (1) Acute on chronic systolic and diastolic heart failure, NYHA class 4 Assessment/Plan: For conroary agnigogram, R&L heart cath at [facility]. Code(s): I50.43 - ACUTE ON CHRONIC COMBINED SYSTOLIC AND DIASTOLIC HRT FAIL
[2017-09-29] MEDS ORDERED: PT OWN MED DRAWER 7, Y5N ONE (10:41)
[2017-09-29 11:19] LABS: ANISOCYTOSIS 3+; MACROCYTOSIS 0; OVALOCYTE 1+; PLATELET ESTIMATE NORMAL; TARGET CELLS 2+
[2017-09-29] MEDS: QUINAPRIL HCL 10 MG TABLET (FP) PO SCH (11:26)
[2017-09-29] MEDS: CARVEDILOL 3.125 MG TABLET (FP) PO SCH (11:26)
[2017-09-29] MEDS: ASPIRIN 325 MG ENTERIC COATED TABLET (FP) PO SCH (11:26)
--- NOTE | 2017-09-29 11:44 | CONSULT ---
Consult - text type - Consultation Consultation Note: Podiatry Consultation: pleasant 72 year old F presented to hospital for admission with SOB x 4 days. Podiatry consultation requested for large blister R dorsal midfoot. Patient denies trauma to the area, notes the blister has gotten progressively larger. Denies F/V/N/C. Afebrile, VSS. PMHx: CHF, DM, HTN Meds: noted ALL: Shellfish PATRICK: R foot: pedal pulses weakly palpable, TG wnl, CFT brisk to all toes. There is a large dorsal midfoot serous blister, fluctuant, limited to dermis, no deep probing, no tenderness, no periwound erythema, no streaking cellulitis, no signs of acute infection. Imp: 72 year old DM F with R serous blister 1. Informed consent obtained. Bedside incision and drainage performed using sterile scissors. All serous fluid expressed. Blister limited to dermis. Patient tolerated procedure well. 2. Recommend xeroform + DSD R foot 3. Appropriate glycemic management discussed with patient and her son 4. Will need to watch dorsal midfoot to make sure it heals appropriately. Can f /u in wound healing center upon discharge. [phone]. 5. Thank you for the courtesy of this consultation Megan Diaz DPM
[2017-09-29] MEDS ORDERED: DOCUSATE SODIUM 100 MG CAPSULE (FP) PO PRN (14:34)
[2017-09-29 15:23] VITALS: BP 112/52; PULSE 75; TEMP 98.4
--- NOTE | 2017-09-29 19:58 | DS ---
Physical Exam: SUBJECTIVE: Patient seen and examined this morning at bedside. Patient feels her breathing has improved. Denies any new complaints. OBJECTIVE: Vital Signs Period Temp Pulse Resp BP Sys/Andres Pulse Ox Last 24 Hr 97.6 F-98.4 F 75-87 18-20 107-132/52-76 100-100 PHYSICAL EXAM GENERAL: The patient is awake, alert, and fully oriented, in no acute distress. NECK: JVD LUNGS: Breath sounds decreased at bases HEART: Regular rate and rhythm, S1, S2 without murmur, rub or gallop. ABDOMEN: Soft, nontender, nondistended, normoactive bowel sounds EXTREMITIES: 2+ edema, Right foot b;ister, no surrounding erythema LABS Laboratory Results - last 24 hr 09/28/17 09/29/17 09/29/17 07:35 05:30 05:30 WBC 6.8 RBC 4.61 Hgb 8.8 L Hct 29.8 L MCV 64.5 L MCH 19.0 L MCHC 29.5 L RDW 26.2 H Plt Count 299 MPV 9.4 Absolute Neuts (auto) 4.5 Neutrophils % No Result Required. Neutrophils % (Manual) 83.0 H Band Neutrophils % 1.0 Lymphocytes % No Result Required. Lymphocytes % (Manual) 13.0 D Monocytes % (Manual) 2 L Eosinophils % (Manual) 0.0 Basophils % (Manual) 1.0 Myelocytes % (Man) 0 Promyelocytes % (Man) 0 Blast Cells % (Manual) 0 Nucleated RBC % 3 H Metamyelocytes 0 Hypochromia 3+ Platelet Estimate Normal Polychromasia 1+ Poikilocytosis 1+ Basophilic Stippling 1+ Anisocytosis 3+ Microcytosis 2+ Macrocytosis 0 Spherocytes 1+ Target Cells 2+ Ovalocytes 1+ PTT (Actin FS) Sodium 144 Potassium 4.6 Chloride 107 Carbon Dioxide 28 Anion Gap 9 BUN 19 H Creatinine 0.9 Creat Clearance w eGFR > 60 Random Glucose 110 H Hemoglobin A1c % Calcium 8.2 L Phosphorus 2.9 Magnesium 2.0 Iron 14 L TIBC 326 Iron Saturation 4 L Total Bilirubin 1.1 H AST 25 ALT 28 Alkaline Phosphatase 81 D Total Protein 5.8 L Albumin 2.6 L 09/29/17 09/29/17 06:30 06:30 WBC RBC Hgb Hct MCV MCH MCHC RDW Plt Count MPV Absolute Neuts (auto) Neutrophils % Neutrophils % (Manual) Band Neutrophils % Lymphocytes % Lymphocytes % (Manual) Monocytes % (Manual) Eosinophils % (Manual) Basophils % (Manual) Myelocytes % (Man) Promyelocytes % (Man) Blast Cells % (Manual) Nucleated RBC % Metamyelocytes Hypochromia Platelet Estimate Polychromasia Poikilocytosis Basophilic Stippling Anisocytosis Microcytosis Macrocytosis Spherocytes Target Cells Ovalocytes PTT (Actin FS) 68.0 H Sodium Potassium Chloride Carbon Dioxide Anion Gap BUN Creatinine Creat Clearance w eGFR Random Glucose Hemoglobin A1c % 6.1 H Calcium Phosphorus Magnesium Iron TIBC Iron Saturation Total Bilirubin AST ALT Alkaline Phosphatase Total Protein Albumin IMAGING: - EKG (09/28 @ 03:53): SINUS RHYTHM WITH OCCASIONAL PREMATURE VENTRICULAR COMPLEXES, POSSIBLE LEFT ATRIAL ENLARGEMENT, SEPTAL INFARCT (CITED ON OR BEFORE 10-DEC-2011), ABNORMAL ECG - EKG (09/28 @ 13:00): NORMAL SINUS RHYTHM, POSSIBLE LEFT ATRIAL ENLARGEMENT, LEFT VENTRICULAR HYPERTROPHY, ANTEROSEPTAL INFARCT (CITED ON OR BEFORE 2011) ABNORMAL ECG - ECHO: LV Systolic function is reduced. Global Hypokinesis of the LV. Severe TR. Mild pericardial effusion. Mild to moderate AR. Large Apical thrombus. Mild to moderate MR. Anterior wall akinesis. Apical anterior wall akinesis. Apical septal wall akinesis. Apical akinesis - CXR: Large left pleural effusion with compressive atelectasis. Vascular congestive changes are noted in the right lung with right-sided Leslye's B lines. Clinical correlate for CHF. - Abdominal US: No evidence of cholelithiasis. There is evidence for adenomyomatosis of the gallbladder. Mild dilatation of the abdominal aorta with soft plaque as described above. HOSPITAL COURSE: Date of Admission:09/28/17 Date of Discharge: 09/29/17 Prehospital Course: 72 y/o F with a PMH of HTN, DM, CHF, who presents to the ED with complaints of SOB x 4d. In addition, she notes having an episode of CP for 15min about a week ago that spontaneously resolved, pt was unable to recall or characterize the pain. In addition she notes for the past 4 days associated w/ the SOB some nausea, chills, LIU. Patient reports seeing her grocery associate who did an echo and per pt reported "that heart wasnt beating correctly" and advised patient come into the ED for further evaluation. Of note, Patient reports having a blister on her right foot but denies knowing how she received the blister but states she believes it to be due to sitting in the sun. denies trauma to the foot. Denies [place], v/d, blood in stool, urinary sxs, sick contacts, changes in diet, or numbnes or tingling. PMD: Dr. Fischer. ER course was notable for: lasix 40mg iv. Hospital Course Patient was admitted for acute decompensated heart failure. Dr. Mancera ( Cardiology) was consulted. An Echo revealed a large apical thrombus for which the patient was started on Heparin. Patient was also diuresed with Lasic and 1 unit of pRBC's was transfused. Patient was transferred as per. Dr. Chaudhry, [facility], R&L heart cath at [facility]. Dr. Diaz ( podiatry) was consulted and a bedside incision and drainage was performed. Her Hypokalemia has resolved. Patient was found to have microcytic anemia and will need to follow up with her primary care physician. Discharge Summary Reason For Visit: CHF Condition: Stable - Instructions Diet, Activity, Other Instructions: You are being transferred for cardiac catheterization and further management for your heart. Your home medications prior to admission were: Home Medications Medication Instructions Recorded Amlodipine Besylate [Norvasc -] 5 mg PO DAILY 09/27/17 Aspirin [Aspirin EC] 81 mg PO DAILY 09/27/17 You are currently on heparin drip (for the clot in the heart) and your medications have been adjusted, please refer to discharge medication list. You had incision and drainage of your right foot blister. Advise xerofoam and dry sterile dressing to the right foot. You received 1 unit blood and are started on iron supplementation. But eventually you will need outpatient Gastroenterology and hematology follow up to work up your anemia. Further medication adjustments and recommendations will be provided based on your cardiac catheterization. Referrals: Michael Fischer [Primary Care Provider] - Disposition: TRANSFER ACUTE CARE/OTHER HOSP - Home Medications Comprehensive Discharge Medication List: Ambulatory Orders Aspirin Coated [Ecotrin -] 325 mg PO DAILY tablet. 09/29/17 Carvedilol [Coreg -] 3.125 mg PO BID tablet 09/29/17 Docusate Sodium [Colace -] 100 mg PO BID PRN capsule 09/29/17 Ferrous Sulfate [Feosol] 325 mg PO DAILY ud 09/29/17 Furosemide Injection [Lasix Injection -] 40 mg IVPUSH DAILY vial 09/29/17 Heparin - 1,000 unit IVPUSH PRN PRN vial 09/29/17 Heparin - 5,000 unit IVPUSH PRN PRN vial 09/29/17 Heparin Sod,Porcine/0.9 % NaCl [Heparin 25,000 Unit/250 ml-Ns] 25,000 unit IV ASDIR 1 Days #1 iv.soln 09/29/17 Quinapril HCl [Accupril -] 10 mg PO DAILY tablet 09/29/17
[2017-09-30] MEDS ORDERED: FERROUS SO4 325 MG TABLET (FP) PO SCH (10:00)
== END 2017-09-29 18:48 | disposition short-term general hospital (02) | DRG 292 ==
LOC: JER 18:45 → JERBED 22:54 → J4W 09-28 02:42 → OBSVTOIN 09-28 03:47
PROVIDERS: ADMIT Internal Medicine; ATTEND Hospitalist
PROC: 30233N1 Transfusion of Nonautologous Red Blood Cells into Peripheral Vein, Percutaneous Approach (ICD-10-PCS; principal; 2017-09-29)
PROC: 0H9MXZZ Drainage of Right Foot Skin, External Approach (ICD-10-PCS; 2017-09-29)
DX: I11.0 Hypertensive heart disease with heart failure (principal); J98.11 Atelectasis; I50.21 Acute systolic (congestive) heart failure; E11.9 Type 2 diabetes mellitus without complications; D50.9 Iron deficiency anemia, unspecified; I51.3 Intracardiac thrombosis, not elsewhere classified; S90.821A Blister (nonthermal), right foot, initial encounter; X58.XXXA Exposure to other specified factors, initial encounter; Y93.9 Activity, unspecified; Y92.89 Other specified places as the place of occurrence of the external cause; Y99.9 Unspecified external cause status; E78.5 Hyperlipidemia, unspecified; E87.6 Hypokalemia; E88.09 Other disorders of plasma-protein metabolism, not elsewhere classified
CPT/HCPCS: 36415; 36430; 36511; 71045-TC-FY; 76705-TC; 80048; 80053; 81003; 81015; 82436; 82550; 82607; 82728; 82746; 82962; 83036; 83540; 83550; 83735; 83880; 84100; 84133; 84300; 84484; 85025; 85044; 85610; 85730; 86850; 86900; 86901; 86922; 93005; 93010; 93306-TC; 99285-25; G0378; J1644; P9038; P9058